=== PATIENT | female | born 1960 | race Caucasian/White ===

== ENCOUNTER 2018-01-07 22:33 | Emergency (ER) | payer MEDICAID ==
[2018-01-08] MEDS: KETOROLAC 15 MG INJ IM (02:02)
== END 2018-01-08 02:05 | disposition home or self-care (01) ==
LOC: FTE 22:33
DX: M17.11 Unilateral primary osteoarthritis, right knee (principal); R09.81 Nasal congestion; J34.89 Other specified disorders of nose and nasal sinuses
CPT/HCPCS: 73562; 96372; 99284-25